=== PATIENT | female | born 1930 | race African-American/Black ===

== ENCOUNTER 2017-09-10 12:34 | Emergency (ER) | payer MEDICARE, OTHER ==
[~2017-09-10] VITALS: Ht 162.6 cm; Wt 45.4 kg
[~2017-09-10 12:34] MED LIST: KLONOPIN0.5 MG ORAL; MAGNESIUM CITR296 M1 PO; PANTOPRAZOLE SO40 MG ORAL; SENNA LAXATIVE1 EAC1 PO
[2017-09-10 12:55] VITALS: BP 125/64
[2017-09-10] MEDS ORDERED: guaiFENesin w/Codeine 5ml Liq ud ORAL PRN (13:15)
[2017-09-10] MEDS ORDERED: Albuterol ud Inhalation HHN ONE (13:15)
--- NOTE | 2017-09-10 13:24 | Emergency Room Report ---
History of Present Illness General Chief Complaint: Upper Respiratory Illness Source: Patient Present Illness HPI [id number] brought in with hospice spiritual care coordinator for 3 days of dry cough, "mucous stuck in my neck." Denies chest pain, SOB No astham/COPD, smoke history No fever/chills Was just DCed from outside hospital recently after "all these tests were normal. " Feels well otherwise Patient and HCW deny any known medical problems or meds Feels well otherwise Allergies: Coded Allergies: No Known Allergies (Unverified , 10/23/13) Patient History Past Medical History: none Past Surgical History: none Pertinent Family History: none Social History: Denies: smoking, alcohol use, drug use Now: No Immunizations: UTD Reviewed Nursing Documentation: PMH: Agreed, PSxH: Agreed Nursing Documentation-PMH Hx Cardiac Problems: No Hx Hypertension: No Hx Pacemaker: No Hx Asthma: No Hx COPD: No Hx Diabetes: No Hx Cancer: No Hx Gastrointestinal Problems: No Hx Dialysis: No History Of Psychiatric Problem: No Hx Cerebrovascular Accident: No Hx Seizures: No Review of Systems All Other Systems: negative except mentioned in HPI Physical Exam Vital Signs Date Time Temp Pulse Resp B/P (MAP) Pulse Ox O2 Delivery O2 Flow Rate FiO2 09/10/17 12:49 98.2 82 16 130/7 98 Room Air 09/10/17 13:14 21 Sp02 EP Interpretation: reviewed, normal General Appearance: normal inspection, well appearing, no apparent distress, alert, GCS 15, non-toxic, cachetic, thin, other - Well appearing, smiling, conversant Head: normocephalic, atraumatic Eyes: bilateral eye PERRL, bilateral eye EOMI ENT: normal ENT inspection, hearing grossly normal, normal pharynx, no angioedema, normal voice, TMs + canals normal, uvula midline Neck: normal inspection, full range of motion, supple, no bony tend Respiratory: normal inspection, lungs clear, normal breath sounds, no respiratory distress, no retraction, no accessory muscle use, no wheezing, speaking full sentences Cardiovascular #1: regular rate, rhythm, no edema Gastrointestinal: normal inspection, normal bowel sounds, non tender, soft, no guarding, no hernia Genitourinary: no CVA tenderness Musculoskeletal: normal inspection, back normal, normal range of motion, Bob' s Sign negative Neurologic: normal inspection, alert, oriented x3, responsive, residential energy auditor III-XII nml as tested, motor strength/tone normal, speech normal Psychiatric: normal inspection, judgement/insight normal, mood/affect normal Skin: normal inspection, normal color, no rash Lymphatic: normal inspection Medical Decision Making Diagnostic Impression: Primary Impression: Upper respiratory infection Qualified Codes: J06.9 - Acute upper respiratory infection, unspecified Additional Impression: Sore throat ER Course Very well appearing elderly lady with no known PMHX with sore throat and dry cough Lungs CTAB. No fever/chills. Not septic appearing. Improved with nebulizer tx and [place] cough syrup in ED Rx expectorant Has home albuterol MDI so I wonder if component of bronchitis chronic already Close PMD followup DC home Last Vital Signs Date Time Temp Pulse Resp B/P (MAP) Pulse Ox O2 Delivery O2 Flow Rate FiO2 09/10/17 13:14 60 20 Room Air 21 09/10/17 12:55 98.8 125/64 100 Status: improved Disposition: HOME, SELF-CARE Referrals: NON PHYSICIAN (PCP) MIGUEL CONDE M.D. Sep 10, 2017 13:24
[2017-09-10] MEDS ORDERED: GUIATUSS AC SY120 ML ORAL (13:25)
[2017-09-10 13:34] VITALS: BP 126/60
== END 2017-09-10 13:54 | disposition home or self-care (01) ==
LOC: EMR 13:17
DX: J06.9 Acute upper respiratory infection, unspecified (principal); J02.9 Acute pharyngitis, unspecified
CPT/HCPCS: 94640; 94664; 99284